=== PATIENT | female | born 1950 | race Caucasian/White ===

== ENCOUNTER 2020-01-09 11:52 | Inpatient (IN) | payer MEDICARE, OTHER ==
[~2020-01-09] VITALS: Ht 165.1 cm; Wt 77.0 kg
[2020-01-09 15:30] VITALS: BP 139/57
[2020-01-09] MEDS ORDERED: ACETAMINOPHEN 325 MG TABLET PO PRN (16:45)
[2020-01-09] MEDS ORDERED: OxyCODONE HCL/ACETAMINOPHEN 10-325 MG TABLET PO PRN (16:45)
[2020-01-09] MEDS ORDERED: DEXTROSE 50%-WATER 25 GM/50 ML SYRINGE IVP PRN (17:00)
[2020-01-09] MEDS ORDERED: MECLIZINE HCL 25 MG TABLET PO PRN (17:00)
[2020-01-09] MEDS ORDERED: TiZANidine HCL 4 MG TABLET PO PRN (17:00)
[2020-01-09] MEDS: MetFORMIN HCL 500 MG TABLET PO SCH (18:08)
[2020-01-09] MEDS: OxyCODONE HCL/ACETAMINOPHEN 5-325 MG TABLET PO PRN ×3 (18:09→22:22)
[2020-01-09 20:18] LABS: GLUCOMETER DEV NAME(LOC) 6N.1; GLUCOSE,POINT OF CARE 122 MG/DL (70-110)
[2020-01-09] MEDS: DOCUSATE SODIUM 100 MG CAPSULE PO SCH (20:37)
[2020-01-09] MEDS: INSULIN LISPRO 100 UNITS/ML SQ PRN (21:00)
[2020-01-09 23:24] VITALS: BP 101/71
[2020-01-10 00:18] LABS: GLUCOMETER DEV NAME(LOC) 4E.2; GLUCOSE,POINT OF CARE 194 MG/DL (70-110)
[2020-01-10] MEDS ORDERED: PNEUMOCOCCAL VACCINE POLYVALENT 0.5 ML VIAL [PPSV23] IM ONE (01:15)
[2020-01-10] MEDS: OxyCODONE HCL/ACETAMINOPHEN 5-325 MG TABLET PO PRN ×4 (04:11→20:51)
[2020-01-10 06:06] LABS: GLUCOMETER DEV NAME(LOC) 4E.2; GLUCOSE,POINT OF CARE 110 MG/DL (70-110)
[2020-01-10 06:48] LABS: BASOPHILS % (AUTO) 0.1 % (0.0-2.0); EOSINOPHILS % (AUTO) 0.4 % (1.0-6.0); HEMATOCRIT 23.9 % (36-46); HEMOGLOBIN 7.9 g/dL (12.0-16.0); LYMPHOCYTES # (AUTO) 1.6 K/uL (1.0-4.8); LYMPHOCYTES % (AUTO) 12.9 % (22.0-44.0); MEAN CORPUSCULAR HEMOGLOBIN 27.3 pg (26.0-34.0); MEAN CORPUSCULAR HGB CONC 32.9 G/dL (31.0-37.0); MEAN CORPUSCULAR VOLUME 83 fL (80-100); MONOCYTES # (AUTO) 0.8 K/uL (0.1-1.0); MONOCYTES % (AUTO) 6.5 % (2.0-9.0); NEUTROPHILS # (AUTO) 9.9 K/uL (1.8-7.7); NEUTROPHILS % (AUTO) 80.1 % (40.0-70.0); PLATELET COUNT (AUTO) 201 K/uL (150-450); RED BLOOD CELL COUNT(AUTO) 2.89 MIL/uL (4.00-5.20); RED CELL DISTRIBUTION WIDTH 14.9 % (11.5-14.5)
[2020-01-10 07:16] LABS: ALANINE AMINOTRANSFERASE 20 U/L (12-78); ALBUMIN 2.3 g/dL (3.4-5.0); ALKALINE PHOSPHATASE 65 U/L (46-116); ANION GAP 5 mmol/L (8-16); ASPARTATE AMINOTRANSFERASE 31 U/L (15-37); BILIRUBIN,TOTAL 0.5 mg/dL (0.1-1.0); CALCIUM, TOTAL 8.2 mg/dL (8.8-10.5); CARBON DIOXIDE 30 mmol/L (22-29); CHLORIDE 101 mmol/L (98-107); CREATININE 0.85 mg/dL (0.60-1.30); GLOMERULAR FILTR. RATE CALC > 60 mL/min (>60); GLUCOSE,RANDOM 109 mg/dL (70-110); POTASSIUM 3.8 mmol/L (3.5-5.1); SODIUM SERUM 136 mmol/L (136-145); TOTAL PROTEIN, SERUM 6.1 g/dL (6.4-8.2); UREA NITROGEN, BLOOD 11 mg/dL (7-18)
[2020-01-10] MEDS: DOCUSATE SODIUM 100 MG CAPSULE PO SCH ×2 (07:54→20:22)
[2020-01-10] MEDS: LISINOPRIL 20 MG TABLET PO SCH (07:54)
[2020-01-10] MEDS: MetFORMIN HCL 500 MG TABLET PO SCH ×2 (07:54→17:33)
[2020-01-10 07:55] VITALS: BP 136/66
[2020-01-10] MEDS: OMEPRAZOLE 20 MG CAPSULE PO SCH (07:55)
[2020-01-10] MEDS: HYDROCHLOROTHIAZIDE 25 MG TABLET PO SCH (07:56)
[2020-01-10 15:31] LABS: GLUCOMETER DEV NAME(LOC) 4E.2; GLUCOSE,POINT OF CARE 97 MG/DL (70-110)
[2020-01-10 18:14] LABS: GLUCOMETER DEV NAME(LOC) 4E.2; GLUCOSE,POINT OF CARE 115 MG/DL (70-110)
[2020-01-10 18:17] VITALS: BP 135/59
[2020-01-10 20:50] LABS: GLUCOMETER DEV NAME(LOC) 4E.2; GLUCOSE,POINT OF CARE 146 MG/DL (70-110)
[2020-01-10] MEDS: INSULIN LISPRO 100 UNITS/ML SQ PRN (20:50)
[2020-01-10 23:24] VITALS: BP 123/61
[2020-01-11] MEDS ORDERED: HYDR-1475 PO (05:12)
[2020-01-11] MEDS ORDERED: MECL25TA39 PO (05:12)
[2020-01-11] MEDS ORDERED: METF-960 PO (05:12)
[2020-01-11] MEDS ORDERED: OMEP20 PO (05:12)
[2020-01-11] MEDS ORDERED: LISI-662 PO (05:12)
[2020-01-11 06:06] LABS: GLUCOMETER DEV NAME(LOC) 6N.1; GLUCOSE,POINT OF CARE 109 MG/DL (70-110)
[2020-01-11 07:22] VITALS: BP 129/67
[2020-01-11] MEDS: OxyCODONE HCL/ACETAMINOPHEN 5-325 MG TABLET PO PRN (08:08)
[2020-01-11] MEDS: MetFORMIN HCL 500 MG TABLET PO SCH ×2 (08:08→17:44)
[2020-01-11] MEDS: OMEPRAZOLE 20 MG CAPSULE PO SCH (08:08)
[2020-01-11] MEDS: DOCUSATE SODIUM 100 MG CAPSULE PO SCH ×2 (08:08→21:19)
[2020-01-11] MEDS: LISINOPRIL 20 MG TABLET PO SCH (08:09)
[2020-01-11] MEDS: HYDROCHLOROTHIAZIDE 25 MG TABLET PO SCH (08:09)
[2020-01-11 12:38] LABS: GLUCOMETER DEV NAME(LOC) 4E.2; GLUCOSE,POINT OF CARE 95 MG/DL (70-110)
[2020-01-11 15:30] VITALS: BP 106/65
[2020-01-11] MEDS: ACETAMINOPHEN 650 MG/20.3 ML SOLUTION UDCUP PO PRN ×2 (15:52→21:40)
[2020-01-11 16:31] VITALS: BP 106/65
[2020-01-11] MEDS: INSULIN LISPRO 100 UNITS/ML SQ PRN (17:51)
[2020-01-11 19:56] LABS: GLUCOMETER DEV NAME(LOC) 6N.1; GLUCOSE,POINT OF CARE 147 MG/DL (70-110)
[2020-01-12 01:07] LABS: GLUCOMETER DEV NAME(LOC) 6N.1; GLUCOSE,POINT OF CARE 136 MG/DL (70-110)
[2020-01-12 04:20] VITALS: BP 150/60
[2020-01-12 06:32] LABS: GLUCOMETER DEV NAME(LOC) 4E.2; GLUCOSE,POINT OF CARE 118 MG/DL (70-110)
[2020-01-12 08:00] VITALS: BP 149/68
[2020-01-12 08:21] LABS: BASOPHILS % (AUTO) 0.3 % (0.0-2.0); EOSINOPHILS % (AUTO) 1.6 % (1.0-6.0); HEMATOCRIT 28.2 % (36-46); HEMOGLOBIN 9.3 g/dL (12.0-16.0); LYMPHOCYTES # (AUTO) 1.7 K/uL (1.0-4.8); MEAN CORPUSCULAR HEMOGLOBIN 27.3 pg (26.0-34.0); MEAN CORPUSCULAR HGB CONC 32.9 G/dL (31.0-37.0); MEAN CORPUSCULAR VOLUME 83 fL (80-100); MONOCYTES # (AUTO) 0.6 K/uL (0.1-1.0); MONOCYTES % (AUTO) 7.4 % (2.0-9.0); NEUTROPHILS # (AUTO) 5.9 K/uL (1.8-7.7); NEUTROPHILS % (AUTO) 70.7 % (40.0-70.0); PLATELET COUNT (AUTO) 331 K/uL (150-450); RED CELL DISTRIBUTION WIDTH 14.6 % (11.5-14.5)
[2020-01-12] MEDS: MetFORMIN HCL 500 MG TABLET PO SCH ×2 (08:59→17:58)
[2020-01-12] MEDS: OxyCODONE HCL/ACETAMINOPHEN 5-325 MG TABLET PO PRN ×2 (09:07→18:23)
[2020-01-12 09:50] VITALS: BP 127/58
[2020-01-12] MEDS: OMEPRAZOLE 20 MG CAPSULE PO SCH (09:51)
[2020-01-12] MEDS: DOCUSATE SODIUM 100 MG CAPSULE PO SCH ×2 (09:51→20:27)
[2020-01-12] MEDS: HYDROCHLOROTHIAZIDE 25 MG TABLET PO SCH (09:51)
[2020-01-12] MEDS: LISINOPRIL 20 MG TABLET PO SCH (09:51)
[2020-01-12] MEDS ORDERED: ACETAMINOPHEN 325 MG TABLET PO PRN (11:45)
[2020-01-12 13:10] LABS: GLUCOMETER DEV NAME(LOC) 4E.2; GLUCOSE,POINT OF CARE 112 MG/DL (70-110)
[2020-01-12] MEDS: ACETAMINOPHEN 325 MG TABLET PO PRN (13:25)
[2020-01-12 15:44] VITALS: BP 120/66
[2020-01-12 17:59] LABS: GLUCOMETER DEV NAME(LOC) 4E.2; GLUCOSE,POINT OF CARE 98 MG/DL (70-110)
[2020-01-12 21:58] LABS: GLUCOMETER DEV NAME(LOC) 6N.1; GLUCOSE,POINT OF CARE 114 MG/DL (70-110)
[2020-01-12 23:22] VITALS: BP 102/66
[2020-01-13 07:15] VITALS: BP 150/62
[2020-01-13] MEDS: DOCUSATE SODIUM 100 MG CAPSULE PO SCH ×2 (08:17→20:04)
[2020-01-13] MEDS: MetFORMIN HCL 500 MG TABLET PO SCH ×2 (08:17→17:31)
[2020-01-13] MEDS: LISINOPRIL 20 MG TABLET PO SCH (08:17)
[2020-01-13] MEDS: HYDROCHLOROTHIAZIDE 25 MG TABLET PO SCH (08:18)
[2020-01-13] MEDS: OMEPRAZOLE 20 MG CAPSULE PO SCH (08:18)
[2020-01-13] MEDS: ACETAMINOPHEN 325 MG TABLET PO PRN (09:59)
[2020-01-13 13:12] LABS: GLUCOMETER DEV NAME(LOC) 4E.2; GLUCOSE,POINT OF CARE 101 MG/DL (70-110)
[2020-01-13 15:03] VITALS: BP 135/57
[2020-01-13] MEDS: OxyCODONE HCL/ACETAMINOPHEN 5-325 MG TABLET PO PRN ×2 (15:09→21:27)
[2020-01-13 21:47] LABS: GLUCOMETER DEV NAME(LOC) 6N.1; GLUCOSE,POINT OF CARE 107 MG/DL (70-110)
[2020-01-13 21:47] LABS: GLUCOMETER DEV NAME(LOC) 6N.1; GLUCOSE,POINT OF CARE 114 MG/DL (70-110)
[2020-01-13 21:47] LABS: GLUCOMETER DEV NAME(LOC) 6N.1; GLUCOSE,POINT OF CARE 104 MG/DL (70-110)
[2020-01-13 23:04] VITALS: BP 143/64
[2020-01-14] MEDS: OxyCODONE HCL/ACETAMINOPHEN 5-325 MG TABLET PO PRN ×4 (02:59→23:14)
[2020-01-14 06:02] LABS: GLUCOMETER DEV NAME(LOC) 4E.2; GLUCOSE,POINT OF CARE 94 MG/DL (70-110)
[2020-01-14 07:10] VITALS: BP 137/54
[2020-01-14] MEDS: MetFORMIN HCL 500 MG TABLET PO SCH ×2 (08:11→16:45)
[2020-01-14] MEDS: DOCUSATE SODIUM 100 MG CAPSULE PO SCH ×2 (08:12→20:30)
[2020-01-14] MEDS: HYDROCHLOROTHIAZIDE 25 MG TABLET PO SCH (08:12)
[2020-01-14] MEDS: LISINOPRIL 20 MG TABLET PO SCH (08:13)
[2020-01-14] MEDS: OMEPRAZOLE 20 MG CAPSULE PO SCH (08:13)
[2020-01-14 09:56] VITALS: BP 141/68
[2020-01-14 13:03] LABS: GLUCOMETER DEV NAME(LOC) 6N.1; GLUCOSE,POINT OF CARE 95 MG/DL (70-110)
[2020-01-14 15:05] VITALS: BP 129/60
[2020-01-14 16:49] LABS: GLUCOMETER DEV NAME(LOC) 4E.2; GLUCOSE,POINT OF CARE 109 MG/DL (70-110)
[2020-01-14] MEDS: ESCITALOPRAM OXALATE 10 MG TABLET PO SCH (20:30)
[2020-01-14 23:14] VITALS: BP 129/65
[2020-01-15 05:06] LABS: GLUCOMETER DEV NAME(LOC) 6N.1; GLUCOSE,POINT OF CARE 130 MG/DL (70-110)
[2020-01-15 05:58] LABS: GLUCOMETER DEV NAME(LOC) 4E.2; GLUCOSE,POINT OF CARE 122 MG/DL (70-110)
[2020-01-15 07:10] VITALS: BP 144/65
[2020-01-15] MEDS: MetFORMIN HCL 500 MG TABLET PO SCH ×2 (07:48→17:27)
[2020-01-15] MEDS: DOCUSATE SODIUM 100 MG CAPSULE PO SCH ×2 (07:49→20:45)
[2020-01-15] MEDS: LISINOPRIL 20 MG TABLET PO SCH (07:49)
[2020-01-15] MEDS: OMEPRAZOLE 20 MG CAPSULE PO SCH (07:50)
[2020-01-15] MEDS: HYDROCHLOROTHIAZIDE 25 MG TABLET PO SCH (07:50)
[2020-01-15 10:00] VITALS: BP 110/53
[2020-01-15] MEDS: MULTIVITAMINS WITH MINERALS, THERAPEUTIC TABLET PO SCH (11:38)
[2020-01-15] MEDS: HYDROCODONE/ACETAMINOPHEN 5-325 MG TABLET PO PRN ×2 (11:38→17:10)
[2020-01-15 14:37] LABS: GLUCOMETER DEV NAME(LOC) 6N.1; GLUCOSE,POINT OF CARE 96 MG/DL (70-110)
[2020-01-15 15:12] VITALS: BP 130/41
[2020-01-15 18:08] LABS: GLUCOMETER DEV NAME(LOC) 4E.2; GLUCOSE,POINT OF CARE 101 MG/DL (70-110)
[2020-01-15] MEDS: MELATONIN 5 MG TABLET PO SCH (20:44)
[2020-01-15] MEDS: ESCITALOPRAM OXALATE 10 MG TABLET PO SCH (20:45)
[2020-01-15 21:14] LABS: GLUCOMETER DEV NAME(LOC) 4E.2; GLUCOSE,POINT OF CARE 123 MG/DL (70-110)
[2020-01-16 00:38] VITALS: BP 132/64
[2020-01-16] MEDS: OxyCODONE HCL/ACETAMINOPHEN 5-325 MG TABLET PO PRN ×3 (00:38→15:44)
[2020-01-16 06:21] LABS: GLUCOMETER DEV NAME(LOC) 4E.2; GLUCOSE,POINT OF CARE 108 MG/DL (70-110)
[2020-01-16 07:39] VITALS: BP 128/89
[2020-01-16] MEDS: LISINOPRIL 20 MG TABLET PO SCH (08:03)
[2020-01-16] MEDS: MULTIVITAMINS WITH MINERALS, THERAPEUTIC TABLET PO SCH (08:03)
[2020-01-16] MEDS: HYDROCHLOROTHIAZIDE 25 MG TABLET PO SCH (08:03)
[2020-01-16] MEDS: MetFORMIN HCL 500 MG TABLET PO SCH ×2 (08:03→17:56)
[2020-01-16] MEDS: OMEPRAZOLE 20 MG CAPSULE PO SCH (08:03)
[2020-01-16] MEDS: ACETAMINOPHEN 325 MG TABLET PO PRN (08:03)
[2020-01-16] MEDS: DOCUSATE SODIUM 250 MG CAPSULE PO SCH ×2 (08:03→20:48)
[2020-01-16 15:44] VITALS: BP 138/58
[2020-01-16] MEDS: MELATONIN 5 MG TABLET PO SCH (20:48)
[2020-01-16] MEDS: ESCITALOPRAM OXALATE 10 MG TABLET PO SCH (20:48)
[2020-01-17 00:13] VITALS: BP 141/55
[2020-01-17 06:09] LABS: GLUCOMETER DEV NAME(LOC) 6N.1; GLUCOSE,POINT OF CARE 111 MG/DL (70-110)
[2020-01-17 07:10] VITALS: BP 143/59
[2020-01-17] MEDS: DOCUSATE SODIUM 250 MG CAPSULE PO SCH ×2 (07:59→20:33)
[2020-01-17] MEDS: MetFORMIN HCL 500 MG TABLET PO SCH ×2 (07:59→18:17)
[2020-01-17] MEDS: MULTIVITAMINS WITH MINERALS, THERAPEUTIC TABLET PO SCH (08:00)
[2020-01-17] MEDS: LISINOPRIL 20 MG TABLET PO SCH (08:00)
[2020-01-17] MEDS: HYDROCHLOROTHIAZIDE 25 MG TABLET PO SCH (08:01)
[2020-01-17] MEDS: OMEPRAZOLE 20 MG CAPSULE PO SCH (08:01)
[2020-01-17] MEDS: ONDANSETRON HCL 4 MG TABLET PO PRN (08:02)
[2020-01-17] MEDS: OxyCODONE HCL/ACETAMINOPHEN 5-325 MG TABLET PO PRN ×2 (10:25→18:23)
[2020-01-17 11:25] VITALS: BP 133/53
[2020-01-17 15:26] LABS: GLUCOMETER DEV NAME(LOC) 4E.2; GLUCOSE,POINT OF CARE 147 MG/DL (70-110)
[2020-01-17 15:43] VITALS: BP 123/46
[2020-01-17] MEDS ORDERED: ESCITALOPRAM OXALATE 10 MG TABLET PO ONE (17:30)
[2020-01-17] MEDS: GABAPENTIN 300 MG CAPSULE PO SCH (20:33)
[2020-01-17] MEDS: MELATONIN 5 MG TABLET PO SCH (20:33)
[2020-01-18] VITALS: BP 145/65
[2020-01-18 05:42] LABS: GLUCOMETER DEV NAME(LOC) 6N.1; GLUCOSE,POINT OF CARE 97 MG/DL (70-110)
[2020-01-18 08:21] VITALS: BP 125/51
[2020-01-18] MEDS: DOCUSATE SODIUM 250 MG CAPSULE PO SCH ×2 (08:44→20:09)
[2020-01-18] MEDS: OMEPRAZOLE 20 MG CAPSULE PO SCH (08:44)
[2020-01-18] MEDS: LISINOPRIL 20 MG TABLET PO SCH (08:45)
[2020-01-18] MEDS: HYDROCHLOROTHIAZIDE 25 MG TABLET PO SCH (08:45)
[2020-01-18] MEDS: MetFORMIN HCL 500 MG TABLET PO SCH ×2 (08:45→17:41)
[2020-01-18] MEDS: MULTIVITAMINS WITH MINERALS, THERAPEUTIC TABLET PO SCH (08:45)
[2020-01-18] MEDS: ESCITALOPRAM OXALATE 10 MG TABLET PO SCH (08:45)
[2020-01-18 15:05] VITALS: BP 131/57
[2020-01-18] MEDS: OxyCODONE HCL/ACETAMINOPHEN 5-325 MG TABLET PO PRN (17:43)
[2020-01-18] MEDS: GABAPENTIN 300 MG CAPSULE PO SCH (20:09)
[2020-01-18] MEDS: MELATONIN 5 MG TABLET PO SCH (20:10)
[2020-01-18 23:36] VITALS: BP 117/50
[2020-01-19] MEDS: ACETAMINOPHEN 325 MG TABLET PO PRN (01:55)
[2020-01-19 05:29] LABS: GLUCOMETER DEV NAME(LOC) 6N.1; GLUCOSE,POINT OF CARE 103 MG/DL (70-110)
[2020-01-19 07:18] VITALS: BP 138/55
[2020-01-19] MEDS: ONDANSETRON HCL 4 MG TABLET PO PRN (07:51)
[2020-01-19] MEDS: ESCITALOPRAM OXALATE 10 MG TABLET PO SCH (08:10)
[2020-01-19] MEDS: LISINOPRIL 20 MG TABLET PO SCH (08:10)
[2020-01-19] MEDS: OMEPRAZOLE 20 MG CAPSULE PO SCH (08:10)
[2020-01-19] MEDS: DOCUSATE SODIUM 250 MG CAPSULE PO SCH ×2 (08:10→20:02)
[2020-01-19] MEDS: MULTIVITAMINS WITH MINERALS, THERAPEUTIC TABLET PO SCH (08:10)
[2020-01-19] MEDS: HYDROCHLOROTHIAZIDE 25 MG TABLET PO SCH (08:10)
[2020-01-19] MEDS: MetFORMIN HCL 500 MG TABLET PO SCH ×2 (08:10→17:31)
[2020-01-19] MEDS: HYDROCODONE/ACETAMINOPHEN 5-325 MG TABLET PO PRN (14:38)
[2020-01-19 15:10] VITALS: BP 139/59
[2020-01-19] MEDS: GABAPENTIN 300 MG CAPSULE PO SCH (20:02)
[2020-01-19] MEDS: MELATONIN 5 MG TABLET PO SCH (20:03)
[2020-01-20] MEDS ORDERED: DOCU-342 PO (04:12)
[2020-01-20] MEDS ORDERED: ESCI10TA PO (04:12)
[2020-01-20] MEDS ORDERED: GABA-1181 PO (04:12)
[2020-01-20] MEDS ORDERED: MULT-723 PO (04:12)
[2020-01-20 05:45] VITALS: BP 111/63
[2020-01-20] MEDS: ONDANSETRON HCL 4 MG TABLET PO PRN (05:56)
[2020-01-20 08:17] VITALS: BP 123/52
[2020-01-20] MEDS: MetFORMIN HCL 500 MG TABLET PO SCH ×2 (09:13→17:52)
[2020-01-20] MEDS: MULTIVITAMINS WITH MINERALS, THERAPEUTIC TABLET PO SCH (09:58)
[2020-01-20] MEDS: DOCUSATE SODIUM 250 MG CAPSULE PO SCH ×2 (09:58→20:14)
[2020-01-20] MEDS: GABAPENTIN 300 MG CAPSULE PO SCH ×2 (09:58→20:17)
[2020-01-20] MEDS: OMEPRAZOLE 20 MG CAPSULE PO SCH (09:58)
[2020-01-20] MEDS: HYDROCHLOROTHIAZIDE 25 MG TABLET PO SCH (09:58)
[2020-01-20] MEDS: ESCITALOPRAM OXALATE 10 MG TABLET PO SCH (09:59)
[2020-01-20] MEDS: LISINOPRIL 20 MG TABLET PO SCH (09:59)
[2020-01-20 15:03] VITALS: BP 132/57
[2020-01-20 18:27] LABS: GLUCOMETER DEV NAME(LOC) 4E.2; GLUCOSE,POINT OF CARE 123 MG/DL (70-110)
[2020-01-20 18:27] LABS: GLUCOMETER DEV NAME(LOC) 4E.2; GLUCOSE,POINT OF CARE 97 MG/DL (70-110)
[2020-01-20] MEDS: MELATONIN 5 MG TABLET PO SCH (20:14)
[2020-01-21 03:08] VITALS: BP 129/58
[2020-01-21] MEDS: OxyCODONE HCL/ACETAMINOPHEN 5-325 MG TABLET PO PRN (03:08)
[2020-01-21 06:43] LABS: GLUCOMETER DEV NAME(LOC) 6N.1; GLUCOSE,POINT OF CARE 121 MG/DL (70-110)
[2020-01-21 07:28] VITALS: BP 134/51
[2020-01-21] MEDS: DOCUSATE SODIUM 250 MG CAPSULE PO SCH (08:06)
[2020-01-21] MEDS: LISINOPRIL 20 MG TABLET PO SCH (08:07)
[2020-01-21] MEDS: HYDROCHLOROTHIAZIDE 25 MG TABLET PO SCH (08:07)
[2020-01-21] MEDS: ESCITALOPRAM OXALATE 10 MG TABLET PO SCH (08:07)
[2020-01-21] MEDS: MULTIVITAMINS WITH MINERALS, THERAPEUTIC TABLET PO SCH (08:07)
[2020-01-21] MEDS: GABAPENTIN 300 MG CAPSULE PO SCH (08:07)
[2020-01-21] MEDS: OMEPRAZOLE 20 MG CAPSULE PO SCH (08:07)
[2020-01-21] MEDS: MetFORMIN HCL 500 MG TABLET PO SCH (08:07)
[2020-01-21] MEDS ORDERED: PERCT PO (08:48)
== END 2020-01-21 12:24 | disposition home health service (06) | DRG 552 ==
LOC: 4E 15:40
PROVIDERS: ADMIT Physical Medicine & Rehabilitation; ATTEND Physical Medicine & Rehabilitation
DX: M48.061 Spinal stenosis, lumbar region without neurogenic claudication (principal); M43.16 Spondylolisthesis, lumbar region; E11.9 Type 2 diabetes mellitus without complications; E66.9 Obesity, unspecified; F41.1 Generalized anxiety disorder; I10 Essential (primary) hypertension; Z98.1 Arthrodesis status; Z68.28 Body mass index [BMI] 28.0-28.9, adult; R53.1 Weakness; R26.9 Unspecified abnormalities of gait and mobility
CPT/HCPCS: 87081; 97110; 97116; 97162; 97165; 97530; 97535; Q0162